=== PATIENT | female | born 1955 | race Hispanic/Latino ===

== ENCOUNTER 2021-09-04 15:00 | Outpatient (RCR) | payer MEDICARE, OTHER | END 2021-09-05 | LOC: PT 15:00 | PROVIDERS: ATTEND Family Medicine | DX: M54.50 Low back pain, unspecified (principal); M62.81 Muscle weakness (generalized); M54.2 Cervicalgia ==

== ENCOUNTER 2021-09-27 13:45 | Outpatient (RCR) | payer OTHER | END 2021-10-06 | LOC: PT 13:45 | PROVIDERS: ATTEND Family Medicine | DX: M54.50 Low back pain, unspecified (principal); M54.2 Cervicalgia; M62.81 Muscle weakness (generalized) | CPT/HCPCS: 97139 ==

== ENCOUNTER 2021-11-03 12:48 | Outpatient (RCR) | payer MEDICARE | END 2021-11-06 | LOC: PT 12:48 | PROVIDERS: ATTEND Family Medicine | DX: M54.50 Low back pain, unspecified (principal); M54.2 Cervicalgia; M62.81 Muscle weakness (generalized) | CPT/HCPCS: 97139 ==

== ENCOUNTER 2021-11-23 12:47 | Outpatient (RCR) | payer MEDICARE, OTHER | END 2021-12-04 | LOC: PT 12:47 | PROVIDERS: ATTEND Family Medicine | DX: M54.50 Low back pain, unspecified (principal) ==